=== PATIENT | female | born 1970 | race Caucasian/White ===

== ENCOUNTER → 2019-04-04 | Outpatient (CLI) | payer OTHER ==
[~2019-04-04] MED LIST: ATARAX,VISTARIL50 MG PO; HYDROCODONE BIT1 T11 PO; MULTIVITAMIN1 TAB PO; PREDNICOT20 MG PO; TOBRADEX 0.1%-0.5 ML OPH; VITAMIN D400 IU PO
== END | disposition home or self-care (01) ==
LOC: LAB 10:43
DX: M25.552 Pain in left hip (principal)

== ENCOUNTER → 2019-08-08 | Outpatient (CLI) | payer OTHER | END | disposition home or self-care (01) | LOC: LAB 13:17 | DX: M25.559 Pain in unspecified hip (principal) ==

== ENCOUNTER → 2019-10-27 | Outpatient (CLI) | payer OTHER | END | disposition home or self-care (01) | LOC: US 12:22 | DX: D25.9 Leiomyoma of uterus, unspecified (principal); N95.0 Postmenopausal bleeding ==

== ENCOUNTER 2021-09-28 07:17 | Emergency (ER) | payer OTHER ==
[~2021-09-28] VITALS: Wt 74.8 kg
[2021-09-28 07:37] LABS: HEMATOCRIT 38.6 % (37.0-47.0); MEAN CELL VOLUME 105.8 fl (81.0-99.0); MEAN CORPUSCULAR HGB CONC 29.3 g/dl (33.0-37.0); MEAN PLATELET VOLUME 8.4 fl (9.6-12.3); NUCLEATED RED BLOOD CELL 0.3 10*3/uL (0.0-0.0); NUCLEATED RED BLOOD CELL 1.6 % (0.0-0.0); PLATELET COUNT AUTOMATED 158 10*3/uL (130-400); RED BLOOD COUNT 3.65 10*6/uL (4.10-5.10); RED CELL DISTRI WIDTH 12.8 % (0-14.5); WHITE BLOOD COUNT 19.4 10*3/uL (4.8-10.8)
[2021-09-28 07:38] LABS: MANUAL DIFF REFLEX YES
[2021-09-28 07:43] LABS: ACT PARTIAL THROMBO TIME 46.5 SECONDS (20.0-32.1); INTERNATIONAL NORM RATIO 1.2 (2.0-3.5)
[2021-09-28 07:49] LABS: CREATININE 1.82 mg/dL (0.55-1.02); POTASSIUM 5.5 mmol/L (3.5-5.1); TOTAL PROTEIN 6.7 gm/dL (6.4-8.2)
[2021-09-28 07:52] LABS: BURR CELLS FEW; TOTAL CELLS COUNTED 100 #CELLS; TOXIC GRANULATION SLIGHT
[2021-09-28 07:53] LABS: PLATELET SUFFICIENCY NORMAL (NORMAL); POLYCHROMASIA SLIGHT
[2021-09-28 09:35] LABS: ABG BASE EXCESS -22.4 mmol/L (-2.0-2.0); ARTERIAL BLOOD GAS PH 6.967 (7.35-7.45)
== END 2021-09-28 14:15 | disposition short-term general hospital (02) ==
LOC: ED 07:17
PROVIDERS: Emergency Medicine
DX: I46.9 Cardiac arrest, cause unspecified (principal); A41.9 Sepsis, unspecified organism; R65.21 Severe sepsis with septic shock; J18.1 Lobar pneumonia, unspecified organism; K72.00 Acute and subacute hepatic failure without coma; E16.2 Hypoglycemia, unspecified; Z88.2 Allergy status to sulfonamides